=== PATIENT | female | born 1995 | race African-American/Black ===

== ENCOUNTER 2018-11-06 06:34 | Inpatient (IN) ==
[2018-11-06] MEDS ORDERED: ONDANSETRON 4 MG/2 ML VIAL IV PRN (07:42)
[2018-11-06] MEDS ORDERED: MEPERIDINE 50 MG/1 ML VIAL IV PRN (07:42)
[2018-11-06] MEDS ORDERED: BUTORPHANOL 2 MG/ML VIAL IV PRN (07:42)
[2018-11-06] MEDS ORDERED: LACTATED RINGERS 1,000 ML IV ONE (07:44)
[2018-11-06] MEDS ORDERED: CITRIC ACID/SODIUM CITRATE 30 ML UDCUP PO ONE (07:44)
[2018-11-06] MEDS ORDERED: FAMOTIDINE 20 MG/2 ML VIAL IV ONE (07:44)
[2018-11-06] MEDS ORDERED: PROMETHAZINE 25 MG/1 ML VIAL IM ONE (07:45)
[2018-11-06] MEDS ORDERED: hydrOXYzine HCL 25 MG/1 ML VIAL IM PRN (07:45)
[2018-11-06] MEDS ORDERED: diphenhydrAMINE 50 MG/1 ML VIAL IV PRN ×2 (07:45)
[2018-11-06] MEDS ORDERED: NALOXONE 0.4 MG/ML VIAL IV PRN (07:45)
[2018-11-06] MEDS ORDERED: ePHEDrine 50 MG/ML AMP IV PRN (07:45)
[2018-11-06 07:55] LABS: Apearance,Urine CLEAR (Clear); Bilirubin,Urine Negative (Negative); Blood, Urine Negative (Negative); Glucose,Urine (UA) Negative (Negative); Ketones,Urine Negative (Negative); Nitrite,Urine Negative (Negative); Protein,Urine Negative; Squamous Epithelial Cell,Urine Occasional /HPF (0-10); Urine Color Yellow (Yellow); Urine Urobilinogen < 2.0 EU/DL (0.2-1.0); WBC,Urine 1 /HPF (0-6)
[2018-11-06] MEDS ORDERED: LACTATED RINGERS 1,000 ML IV SCH (08:00)
[2018-11-06] MEDS ORDERED: fentaNYL 2 MCG/ROPIV 0.2% EPID 100 ML EPIDURAL SCH (08:00)
[2018-11-06 08:04] LABS: Basophils # 0.1 10*3/uL (0.0-0.2); Basophils % 0.3 % (0.0-0.8); Eosinophils % 0.3 % (0.00-10.9); Hematocrit 31.8 VOL% (35.7-47.0); Hemoglobin 10.8 GM/DL (12.0-16.0); Immature Granulocytes % 0.9 %; Immature Granulocytes Absolute 0.14 #; Lymphocytes # 1.6 10*3/uL (1.4-4.0); Lymphocytes % 10.4 % (21.3-54.2); Mean Corpuscular Hemoglobin 31 PG (27-34); Mean Corpuscular Volume 89.8 FL (87-102); Mean Platelet Volume 11.5 FL (9.6-12.0); Monocytes # 0.9 10*3/uL (0.11-0.8); Monocytes % 5.6 % (1.7-12.7); Neutrophils # 12.7 10*3/uL (1.4-7.4); Neutrophils % 82.5 % (38.7-73.9); Platelet Count 228 T/CUMM (130-400); Red Blood Count 3.54 MC/CUMM (3.8-5.5); Red Cell Distribution Width 13.2 % (9.3-17.3); White Blood Count 15.4 T/CUMM (4-12)
[2018-11-06 08:25] LABS: Alanine Aminotransferase 20 U/L (13-56); Alkaline Phosphatase 149 U/L (45-117); Aspartate Amino Transferase 21 U/L (0-37); Bilirubin,Total < 0.39 MG/DL (0.2-1.0); Blood Urea Nitrogen 10 MG/DL (7-18); Glucose 88 MG/DL (74-106); Osmolality,Calculated 270.8 MOS/KG (273-304); Potassium 4.1 MMOL/L (3.5-5.1); Sodium 137 MMOL/L (136-145); Total Protein 7.1 G/DL (6.4-8.3); Uric Acid 5.7 MG/DL (2.6-6.0)
[2018-11-06] MEDS: OXYTOCIN/LR 20 UNIT/1,000 ML BAG IV SCH ×2 (09:16→14:53)
[2018-11-06] MEDS ORDERED: miSOPROStol 200 MCG TABLET ONE (10:06)
[2018-11-06] MEDS ORDERED: CARBOPROST TROMETHAMINE 250 MCG/ML AMP IM ONE (10:06)
[2018-11-06] MEDS ORDERED: METHYLERGONOVINE 0.2 MG/1 ML AMP ONE (10:06)
[2018-11-06] MEDS ORDERED: LIDOCAINE 1% 50 ML VIAL ONE (10:06)
[2018-11-06 11:29] LABS: Cord Arterial Blood HCO3 15.6 MMOL/L
[2018-11-06 11:32] LABS: Cord Venous Blood HCO3 17.2 MMOL/L; Cord Venous Blood PCO2 62.2 MMHG
[2018-11-06 11:33] LABS: Cord Venous Blood PO2 18.6
[2018-11-06] MEDS ORDERED: BENZOCAINE 20%/MENTHOL 0.5% SPRAY 56 GM CAN TOP PRN (15:10)
[2018-11-06] MEDS ORDERED: DIPH/TET/ACEL PERT BOOSTER VACCINE 0.5 ML VIAL IM ONE (15:10)
[2018-11-06] MEDS ORDERED: MEASLES/MUMPS/RUBELLA VACCINE 0.5 ML VIAL SUBCUT ONE (15:10)
[2018-11-06] MEDS ORDERED: ACETAMINOPHEN 325 MG TABLET PO PRN (15:10)
[2018-11-06] MEDS ORDERED: WITCH HAZEL PADS 100/JAR TOP PRN (15:10)
[2018-11-06] MEDS ORDERED: BISACODYL 10 MG SUPP RECTAL PRN (15:10)
[2018-11-06] MEDS ORDERED: ACETAMINOPHEN/CODEINE 300-30 MG TABLET PO PRN (15:10)
[2018-11-06] MEDS ORDERED: LANOLIN 50% CREAM 0.3 OZ TUBE TOP PRN (15:10)
[2018-11-06] MEDS ORDERED: RHO(D) IMMUNE GLOBULIN 300 MCG SYRINGE IM ONE (15:10)
[2018-11-06] MEDS ORDERED: HYDROCORTISONE 2.5% RECTAL CREAM 30 GM TUBE TOP PRN (15:10)
[2018-11-06] MEDS ORDERED: oxyCODONE/ACETAMINOPHEN 5-325 MG TABLET PO PRN (15:10)
[2018-11-06] MEDS: IBUPROFEN 800 MG TABLET PO PRN (17:45)
[2018-11-06] MEDS: oxyCODONE/ACETAMINOPHEN 5-325 MG TABLET PO PRN (17:45)
[2018-11-06] MEDS: DOCUSATE SODIUM 100 MG CAPSULE PO SCH (21:03)
[2018-11-07 05:52] LABS: Basophils # 0.1 10*3/uL (0.0-0.2); Basophils % 0.3 % (0.0-0.8); Eosinophils # 0.2 10*3/uL (0.0-0.87); Hematocrit 25.7 VOL% (35.7-47.0); Immature Granulocytes % 1.4 %; Immature Granulocytes Absolute 0.26 #; Lymphocytes # 2.2 10*3/uL (1.4-4.0); Lymphocytes % 11.4 % (21.3-54.2); Mean Corpuscular HGB Conc 34.2 GM/DL (32-36); Mean Corpuscular Hemoglobin 31 PG (27-34); Mean Corpuscular Volume 89.9 FL (87-102); Mean Platelet Volume 11.9 FL (9.6-12.0); Monocytes # 1.5 10*3/uL (0.11-0.8); Monocytes % 7.6 % (1.7-12.7); Neutrophils # 15.1 10*3/uL (1.4-7.4); Neutrophils % 78.3 % (38.7-73.9); Red Blood Count 2.86 MC/CUMM (3.8-5.5); Red Cell Distribution Width 13.2 % (9.3-17.3); White Blood Count 19.2 T/CUMM (4-12)
[2018-11-07 05:58] LABS: Hemoglobin 8.8 GM/DL (12.0-16.0); Platelet Count 172 T/CUMM (130-400)
[2018-11-07] MEDS: oxyCODONE/ACETAMINOPHEN 5-325 MG TABLET PO PRN (06:09)
[2018-11-07] MEDS: DOCUSATE SODIUM 100 MG CAPSULE PO SCH ×2 (09:00→20:47)
[2018-11-07] MEDS: FERROUS SULFATE 325 MG TABLET PO SCH ×2 (09:00→20:47)
[2018-11-07] MEDS: IBUPROFEN 800 MG TABLET PO PRN (21:55)
[2018-11-08 07:30] VITALS: BP 106/70
[2018-11-08] MEDS: DOCUSATE SODIUM 100 MG CAPSULE PO SCH (08:07)
[2018-11-08] MEDS: FERROUS SULFATE 325 MG TABLET PO SCH (08:07)
== END 2018-11-08 12:15 | disposition home or self-care (01) | DRG 807 ==
LOC: N.LDOUT 06:34 → N.LD 06:35 → N.OB 15:09
PROVIDERS: ADMIT Obstetrics & Gynecology; ATTEND Obstetrics & Gynecology